=== PATIENT | female | born 1935 | race Caucasian/White ===

== ENCOUNTER → 2016-08-31 | Outpatient (CLI) | payer MEDICARE, BC ==
--- NOTE | 2016-10-12 16:46 | NM ---
REPORT ADDENDUM ADDENDUM: Additional images were obtained at rest following the administration of 27.5 mCi of Tech 99M labeled sestamibi. FINDINGS: The distribution of radiotracer appears similar with rest imaging, however there was a nonreversible tiny focus of mildly decreased perfusion along the anterior wall towards the apex and a small focus involving the apex. These may represent small areas of mild ischemia. Ejection fraction is also similar rest at 58%. Addendum Dictated by: Cody Malik MD <Electronically signed by Cody Malik MD in [facility]> 09/01/1635 2 2 EXAMINATION: Nuclear medicine myocardial perfusion study HISTORY: Dyslipidemia. PROCEDURE: Following intravenous administration of 0.4 mg of Lexiscan and 26.3 mCi of technetium 99m sestamibi, stress SPECT images including gating imaging was performed. FINDINGS: Stress myocardial SPECT images demonstrates a small area of mildly decreased perfusion at the mid to apical anterior wall. This most likely represents breast attenuation artifact. Review of gated images demonstrates normal wall motion, contractility and wall thickening. The left ventricular ejection fraction is 61 %. The left ventricular chamber size is normal. IMPRESSION: 1. Small area of mildly decreased perfusion in the anterior wall, likely breast attenuation artifact. This could be confirmed with rest imaging if needed. 2. Normal ventricular chamber size and function with ejection fraction of 61 %. Dictated by: Cody Malik MD <Electronically signed by Cody Malik MD in [facility]> 08/16/16 at 0906 3 3 Doc Number: [id number] Copies To: Andrew Chung MD; Marycruz Carrington NP~ MTDD
== END | disposition home or self-care (01) ==
LOC: MW.NM 08:00
PROVIDERS: ATTEND Internal Medicine
DX: E78.5 Hyperlipidemia, unspecified (principal); I10 Essential (primary) hypertension
CPT/HCPCS: 78451; 78451-26; A9500

== ENCOUNTER → 2016-11-17 | Outpatient (CLI) | payer MEDICARE, BC | LOC: MW.CHIM 08:00 | PROVIDERS: ATTEND Internal Medicine | DX: R07.9 Chest pain, unspecified (principal); E78.5 Hyperlipidemia, unspecified; I10 Essential (primary) hypertension | CPT/HCPCS: G0463 ==

== ENCOUNTER 2022-12-28 21:19 | Inpatient (IN) | payer MEDICARE, BC ==
[2022-12-28 21:34] LABS: BASOPHILS PERCENT AUTO 0.3 % (0.0-1.5); EOSINOPHILS ABSOLUTE AUTO 0.2 K/uL (0.0-0.7); EOSINOPHILS PERCENT AUTO 2.3 % (0.0-7.0); HEMATOCRIT 36.2 % (36.0-46.0); HEMOGLOBIN 12.1 g/dL (12.0-16.0); LYMPHOCYTES ABSOLUTE AUTO 2.1 K/uL (0.6-2.4); LYMPHOCYTES PERCENT AUTO 32.3 % (16.0-40.0); MEAN CORPUSCULAR HEMOGLOBIN 28.1 pg (27.0-32.0); MEAN CORPUSCULAR HGB CONC 33.4 g/dL (31.0-37.0); MEAN CORPUSCULAR VOLUME 84.2 fL (80.0-98.0); MONOCYTES ABSOLUTE AUTO 0.6 K/uL (0.0-0.8); MONOCYTES PERCENT AUTO 9.5 % (0.0-15.0); NEUTROPHILS ABSOLUTE AUTO 3.7 K/uL (1.4-5.7); NEUTROPHILS PERCENT AUTO 55.6 % (48.0-80.0); PLATELET COUNT,PLT 181 K/uL (150-400)
[2022-12-28] MEDS ORDERED: Labetalol 100 MG/20 ML MDV IVPUSH ONE (21:41)
[2022-12-28] MEDS ORDERED: Iopamidol 755 MG/ML 500 ML Multipack Bottle IVPUSH STA (21:43)
[2022-12-28 21:51] LABS: INR 1.09 (0.86-1.11); PTT,PARTIAL THROMBOPLSTIN TIME 31.6 SEC (23.9-30.7)
[2022-12-28] MEDS ORDERED: Acetaminophen 500 MG Tab PO ONE (21:57)
[2022-12-28] MEDS ORDERED: Ondansetron 4 MG/2 ML SDV IVPUSH ONE (21:57)
[2022-12-28 22:06] LABS: A/G RATIO 1.1 (0.9-1.6); ALBUMIN 3.6 g/dL (3.4-5.0); BILIRUBIN TOTAL 0.3 mg/dL (0.2-1.0); CALCIUM 9.3 mg/dL (8.5-10.1); CARBON DIOXIDE,CO2 32.2 mmol/L (21.0-32.0); CREATININE 1.1 mg/dL (0.6-1.0); EST CRCL DRUG DOSING (CG) 34.37 mL/min; MAGNESIUM 1.3 mg/dL (1.8-2.4); POTASSIUM,K 3.4 mmol/L (3.5-5.1); TSH ULTRASENSITIVE 1.85 uIU/mL (0.36-3.74)
[2022-12-28] MEDS ORDERED: Magnesium Sulfate/Water 2 GM in Premix Bag 1 BAG IV ONE (22:13)
[2022-12-28] MEDS ORDERED: Morphine 2 MG/ML SYRINGE IVPUSH ONE (22:45)
[2022-12-28 22:57] LABS: APPEARANCE,URINE CLEAR; BILIRUBIN,URINE NEGATIVE (NEGATIVE); COLOR,URINE DARK YELLOW; GLUCOSE,URINE NEGATIVE (NEGATIVE); KETONES,URINE NEGATIVE (NEGATIVE); LEUKOCYTE ESTERASE,URINE NEGATIVE (NEGATIVE); NITRITE,URINE NEGATIVE (NEGATIVE); OCCULT BLOOD,URINE NEGATIVE (NEGATIVE); PROTEIN,URINE NEGATIVE (NEGATIVE); UROBILINOGEN,URINE 0.2 EU/dL (<2.0)
[2022-12-29] MEDS ORDERED: Potassium Chloride 20 MEQ Tab.ER PO ONE (07:22)
[2022-12-29] MEDS: Insuln Aspart Prot/Insulin Aspart 100 Units/ML 3 ML FlexPen SUBCUT SCH ×3 (09:30→19:53)
[2022-12-29 10:31] LABS: TSH ULTRASENSITIVE 1.83 uIU/mL (0.36-3.74)
[2022-12-29 10:35] LABS: HEMOGLOBIN A1C 7.4 %
[2022-12-29] MEDS: Enoxaparin 40 MG/0.4 ML Syringe SUBCUT SCH (11:25)
[2022-12-29] MEDS: Pantoprazole 40 MG Tab.CR PO SCH (11:26)
[2022-12-29] MEDS ORDERED: Gadobenate Dimeglumine 529 MG/ML 20 ML SDV IVPUSH STA (12:28)
[2022-12-29] MEDS ORDERED: Acetaminophen 325 MG Tab PO PRN (15:02)
[2022-12-29] MEDS: Clopidogrel 75 MG Tab PO SCH (18:03)
[2022-12-29] MEDS: Aspirin 81 MG Tab.Chew PO SCH (18:03)
[2022-12-29] MEDS ORDERED: Simvastatin 10 MG Tab PO SCH (21:00)
[2022-12-29] MEDS ORDERED: atorvaSTATin 40 MG Tab PO SCH (21:00)
[2022-12-30 06:46] LABS: BASOPHILS PERCENT AUTO 0.5 % (0.0-1.5); EOSINOPHILS ABSOLUTE AUTO 0.2 K/uL (0.0-0.7); HEMATOCRIT 35.3 % (36.0-46.0); HEMOGLOBIN 11.6 g/dL (12.0-16.0); LYMPHOCYTES ABSOLUTE AUTO 1.1 K/uL (0.6-2.4); LYMPHOCYTES PERCENT AUTO 25.2 % (16.0-40.0); MEAN CORPUSCULAR HEMOGLOBIN 27.5 pg (27.0-32.0); MEAN CORPUSCULAR HGB CONC 32.9 g/dL (31.0-37.0); MEAN CORPUSCULAR VOLUME 83.6 fL (80.0-98.0); MONOCYTES ABSOLUTE AUTO 0.3 K/uL (0.0-0.8); MONOCYTES PERCENT AUTO 7.3 % (0.0-15.0); NEUTROPHILS ABSOLUTE AUTO 2.7 K/uL (1.4-5.7); NRBC ABSOLUTE 0 K/uL; PLATELET COUNT,PLT 174 K/uL (150-400); RED BLOOD CELL COUNT 4.22 M/uL (4.30-5.90); WHITE BLOOD CELL COUNT,WBC 4.25 K/uL (4.0-11.0)
[2022-12-30 07:15] LABS: CALCIUM 9.1 mg/dL (8.5-10.1); CARBON DIOXIDE,CO2 32.6 mmol/L (21.0-32.0); CREATININE 1.1 mg/dL (0.6-1.0); EST CRCL DRUG DOSING (CG) 34.37 mL/min; MAGNESIUM 1.5 mg/dL (1.8-2.4); POTASSIUM,K 3.8 mmol/L (3.5-5.1)
[2022-12-30] MEDS: Insuln Aspart Prot/Insulin Aspart 100 Units/ML 3 ML FlexPen SUBCUT SCH ×2 (07:58→12:05)
[2022-12-30 08:12] VITALS: BP 153/58; PULSE 64
[2022-12-30] MEDS ORDERED: ARIPiprazole 10 MG Tab PO SCH (09:00)
[2022-12-30] MEDS ORDERED: DESVENLAFAXINE SUCCINATE PO SCH (09:00)
[2022-12-30] MEDS: Aspirin 81 MG Tab.Chew PO SCH (09:51)
[2022-12-30] MEDS: Pantoprazole 40 MG Tab.CR PO SCH (09:52)
[2022-12-30] MEDS: Clopidogrel 75 MG Tab PO SCH (09:52)
[2022-12-30] MEDS: Enoxaparin 40 MG/0.4 ML Syringe SUBCUT SCH (12:03)
== END 2022-12-30 13:35 | disposition home health service (06) | DRG 66 ==
LOC: MW.ED 21:19 → MW.MS 23:24 → OBSVTOIN 12-29 18:06 → MW.MS 12-29 18:06
PROVIDERS: ADMIT Internal Medicine; ATTEND Internal Medicine
DX: I63.412 Cerebral infarction due to embolism of left middle cerebral artery (principal); R47.01 Aphasia; R29.702 NIHSS score 2; E11.9 Type 2 diabetes mellitus without complications; E87.6 Hypokalemia; E83.42 Hypomagnesemia; F41.9 Anxiety disorder, unspecified; F32.A Depression, unspecified; K21.9 Gastro-esophageal reflux disease without esophagitis; G89.29 Other chronic pain; M54.9 Dorsalgia, unspecified; Z96.659 Presence of unspecified artificial knee joint; Z66 Do not resuscitate; Z20.822 Contact with and (suspected) exposure to COVID-19; I10 Essential (primary) hypertension; R47.1 Dysarthria and anarthria; Z98.890 Other specified postprocedural states; Z79.84 Long term (current) use of oral hypoglycemic drugs; Z79.82 Long term (current) use of aspirin; Z79.899 Other long term (current) drug therapy; Z88.0 Allergy status to penicillin; Z88.1 Allergy status to other antibiotic agents; Z88.8 Allergy status to other drugs, medicaments and biological substances; Z88.2 Allergy status to sulfonamides; Z91.040 Latex allergy status
CPT/HCPCS: 36415; 70450; 70496; 70498; 70553; 71045; 80053; 80061; 81003; 82607; 82947 ×3; 83036; 83735; 84443 ×2; 84484; 85025; 85610; 85730; 93005; 93306; A9270 ×6; A9577; J1650; J2270; J2405; J3475; J3490; Q9967; U0002; 80048; 92523-GN-52; 97161-GP

== ENCOUNTER 2023-04-15 16:03 | Emergency (ER) | payer MEDICARE, BC ==
[2023-04-15] MEDS ORDERED: Sodium Chloride 0.9% 2.5 ML Syringe FLUSH PRN (16:27)
[2023-04-15] MEDS ORDERED: Sodium Chloride 0.9% 10 ML Syringe FLUSH PRN (16:27)
[2023-04-15 16:37] LABS: BASOPHILS PERCENT AUTO 0.4 % (0.0-1.5); EOSINOPHILS ABSOLUTE AUTO 0.1 K/uL (0.0-0.7); EOSINOPHILS PERCENT AUTO 2.1 % (0.0-7.0); HEMATOCRIT 39.2 % (36.0-46.0); HEMOGLOBIN 13.3 g/dL (12.0-16.0); LYMPHOCYTES ABSOLUTE AUTO 1.3 K/uL (0.6-2.4); LYMPHOCYTES PERCENT AUTO 25.3 % (16.0-40.0); MEAN CORPUSCULAR HEMOGLOBIN 27.7 pg (27.0-32.0); MEAN CORPUSCULAR HGB CONC 33.9 g/dL (31.0-37.0); MEAN CORPUSCULAR VOLUME 81.7 fL (80.0-98.0); MONOCYTES ABSOLUTE AUTO 0.4 K/uL (0.0-0.8); NEUTROPHILS ABSOLUTE AUTO 3.4 K/uL (1.4-5.7); NEUTROPHILS PERCENT AUTO 64.2 % (48.0-80.0); NRBC ABSOLUTE 0 K/uL; PLATELET COUNT,PLT 168 K/uL (150-400); WHITE BLOOD CELL COUNT,WBC 5.26 K/uL (4.0-11.0)
[2023-04-15 16:59] LABS: A/G RATIO 1.1 (0.9-1.6); ALBUMIN 3.9 g/dL (3.4-5.0); BILIRUBIN TOTAL 0.4 mg/dL (0.2-1.0); CALCIUM 9.7 mg/dL (8.5-10.1); CREATININE 1.1 mg/dL (0.6-1.0); EST CRCL DRUG DOSING (CG) 34.37 mL/min; POTASSIUM,K 3.1 mmol/L (3.5-5.1); PROTEIN TOTAL,TP 7.5 g/dL (6.4-8.2)
[2023-04-15] MEDS ORDERED: Magnesium Sulfate/Water 4 GM in Premix Bag 1 BAG IV ONE (17:11)
[2023-04-15] MEDS ORDERED: Potassium Chloride 10% 20 MEQ/15 ML Soln 15 ML UD Cup PO ONE (17:12)
[2023-04-15] MEDS ORDERED: Magnesium Sulfate/Water 2 GM in Premix Bag 1 BAG IV ONE (17:15)
[2023-04-15] MEDS ORDERED: Metoprolol Tartrate 25 MG Tab PO ONE (17:23)
[2023-04-15 19:20] VITALS: BP 157/80; PULSE 65
== END 2023-04-15 19:23 | disposition home or self-care (01) ==
LOC: MW.ED 16:03
DX: I48.0 Paroxysmal atrial fibrillation (principal); E83.42 Hypomagnesemia; E87.6 Hypokalemia; E11.9 Type 2 diabetes mellitus without complications; I10 Essential (primary) hypertension; Z79.82 Long term (current) use of aspirin; Z79.84 Long term (current) use of oral hypoglycemic drugs; Z79.899 Other long term (current) drug therapy; Z88.0 Allergy status to penicillin; Z88.2 Allergy status to sulfonamides; Z91.040 Latex allergy status; Z88.1 Allergy status to other antibiotic agents
CPT/HCPCS: 36415; 80053; 83735; 84484; 85025; 93005; 96365; 99284; A9270; J3475; J3490; 99283